=== PATIENT | female | born 1965 | race Caucasian/White ===

== ENCOUNTER → 2017-01-10 | Day surgery (SDC) | payer MEDICAID ==
[~2017-01-10] VITALS: Ht 160 cm; Wt 86.6 kg
[~2017-01-10] MED LIST: ASPI-1035 PO; BUPIVACAINE/EPINEPH/PF 0.25%/0.0005 10ML ONE; CEFAZOLIN SODIUM 1000MG/VIAL ONE; EPINEPHRINE 1:1000 1 MG/ML AMP ONE; FENTANYL CITRATE/PF 50MCG/ML 2ML VIAL ONE; GLIP5TAB12 PO; GLYCOPYRROLATE 0.2 MG/ML 2ML VIAL ONE; HYDROCODONE/ACETAMINOPHEN 5/325MG TABLET PO PRN; INSASP SQ; INSU10VI5 SQ; LACTATED RINGERS 1,000 ML IV SCH; LIDOCAINE HCL 1% 20ML VIAL (Pyxis) INJ ONE; MIDAZOLAM HCL 2 MG/2 ML VIAL ONE; MORPHINE SULFATE/PF 1MG/ML 10ML AMP ONE; NEOSTIGMINE METHYLSULFATE 1MG/ML 10 ML VIAL ONE; OMEP40CA34 PO; ONDANSETRON HCL 4MG/2ML VIAL IV PRN; PROPOFOL 200MG/20ML VIAL IV ONE; ROCURONIUM BROMIDE 10MG/ML VIAL 5ML IV ONE; SIMV40TA5 PO
[2017-01-10] MEDS: HYDROMORPHONE HCL/PF 2MG/ML CPJ IV PRN ×2 (12:44→12:52)
[2017-01-10 12:52] VITALS: BP 138/82
== END | disposition home or self-care (01) ==
LOC: OR 07:38
PROVIDERS: ATTEND Orthopaedic Surgery
DX: M75.122 Complete rotator cuff tear or rupture of left shoulder, not specified as traumatic (principal); M75.52 Bursitis of left shoulder; M75.22 Bicipital tendinitis, left shoulder; M25.812 Other specified joint disorders, left shoulder
CPT/HCPCS: 29822; 29826; 82962; 88304; 88311; 97166; J0171; J0690; J1170; J2250; J2405; J2710; J3010; J3490; J7030; 88305; J2274; J2704